=== PATIENT | female | born 1985 | race African-American/Black ===

== ENCOUNTER 2019-12-24 01:03 | Inpatient (IN) ==
[2019-12-24] MEDS ORDERED: BUTORPHANOL 2 MG/ML VIAL IV PRN (01:30)
[2019-12-24] MEDS ORDERED: ONDANSETRON 4 MG/2 ML VIAL IV PRN (01:30)
[2019-12-24] MEDS ORDERED: MEPERIDINE 50 MG/1 ML VIAL IV PRN (01:30)
[2019-12-24] MEDS: LACTATED RINGERS 1,000 ML IV SCH ×2 (01:50→10:02)
[2019-12-24 02:04] LABS: Basophils % 0.2 % (0.0-0.8); Eosinophils # 0.1 10*3/uL (0.0-0.87); Eosinophils % 1.1 % (0.00-10.9); Hematocrit 33.4 VOL% (35.7-47.0); Hemoglobin 11.6 GM/DL (12.0-16.0); Immature Granulocytes % 0.2 %; Immature Granulocytes Absolute 0.01 #; Lymphocytes # 1.2 10*3/uL (1.4-4.0); Lymphocytes % 26.2 % (21.3-54.2); Mean Corpuscular HGB Conc 34.7 GM/DL (32-36); Mean Corpuscular Volume 93.3 FL (87-102); Mean Platelet Volume 9.6 FL (9.6-12.0); Monocytes % 8.5 % (1.7-12.7); Neutrophils % 63.8 % (38.7-73.9); Platelet Count 142 T/CUMM (130-400); Red Blood Count 3.58 MC/CUMM (3.8-5.5); Red Cell Distribution Width 12.4 % (9.3-17.3); White Blood Count 4.6 T/CUMM (4-12)
[2019-12-24] MEDS: OXYTOCIN/LR 20 UNIT/1,000 ML BAG IV SCH ×2 (02:20→15:01)
[2019-12-24 02:25] LABS: Albumin 2.7 G/DL (3.4-5.0); Bilirubin,Total 0.6 MG/DL (0.2-1.0); Calcium 9.2 MG/DL (8.5-10.1); Osmolality,Calculated 267.1 MOS/KG (273-304); Total Protein 7.4 G/DL (6.4-8.3)
[2019-12-24 04:57] LABS: Hypochromasia Slight; Microcytosis Slight; Ovalocytes Slight; Tear Drop Cells Slight
[2019-12-24 04:58] LABS: Platelet Estimate Adequate
[2019-12-24] MEDS ORDERED: METHYLERGONOVINE 0.2 MG/1 ML AMP ONE (11:45)
[2019-12-24] MEDS ORDERED: TRANEXAMIC ACID 1,000 MG/10 ML VIAL ONE (11:45)
[2019-12-24] MEDS ORDERED: OXYTOCIN/LR 20 UNIT/1,000 ML BAG IV ONE ×2 (11:45→15:57)
[2019-12-24] MEDS ORDERED: miSOPROStoL 200 MCG TABLET ONE (11:45)
[2019-12-24] MEDS ORDERED: CARBOPROST TROMETHAMINE 250 MCG/ML AMP IM ONE (11:46)
[2019-12-24 12:38] LABS: Cord Arterial Blood HCO3 18.3 MMOL/L; Cord Venous Blood HCO3 19.2 MMOL/L; Cord Venous Blood PCO2 36.7 MMHG; Cord Venous Blood PO2 36.6 MMHG
[2019-12-24] MEDS ORDERED: MEASLES/MUMPS/RUBELLA VACCINE 0.5 ML VIAL SUBCUT ONE (15:57)
[2019-12-24] MEDS ORDERED: oxyCODONE/ACETAMINOPHEN 5-325 MG TABLET PO PRN (15:57)
[2019-12-24] MEDS ORDERED: BENZOCAINE 20%/MENTHOL 0.5% SPRAY 56 GM CAN TOP PRN (15:57)
[2019-12-24] MEDS ORDERED: DIPH/TET/ACEL PERT BOOSTER VACCINE 0.5 ML VIAL IM ONE (15:57)
[2019-12-24] MEDS ORDERED: RHO(D) IMMUNE GLOBULIN 300 MCG SYRINGE IM ONE (15:57)
[2019-12-24] MEDS ORDERED: WITCH HAZEL PADS 100/JAR TOP PRN (15:57)
[2019-12-24] MEDS ORDERED: LANOLIN 50% CREAM 0.3 OZ TUBE TOP PRN (15:57)
[2019-12-24] MEDS ORDERED: ACETAMINOPHEN 325 MG TABLET PO PRN (15:57)
[2019-12-24] MEDS ORDERED: IBUPROFEN 800 MG TABLET PO PRN (15:57)
[2019-12-24] MEDS ORDERED: BISACODYL 10 MG SUPP RECTAL PRN (15:57)
[2019-12-24] MEDS ORDERED: HYDROCORTISONE 2.5% RECTAL CREAM 30 GM TUBE TOP PRN (15:57)
[2019-12-24] MEDS: oxyCODONE/ACETAMINOPHEN 5-325 MG TABLET PO PRN (18:40)
[2019-12-24] MEDS: DOCUSATE SODIUM 100 MG CAPSULE PO SCH (21:26)
[2019-12-25 05:44] LABS: Basophils % 0.1 % (0.0-0.8); Eosinophils # 0.1 10*3/uL (0.0-0.87); Eosinophils % 0.7 % (0.00-10.9); Hematocrit 28.4 VOL% (35.7-47.0); Immature Granulocytes % 0.4 %; Immature Granulocytes Absolute 0.03 #; Lymphocytes # 1.3 10*3/uL (1.4-4.0); Mean Corpuscular HGB Conc 35.2 GM/DL (32-36); Mean Corpuscular Volume 91.9 FL (87-102); Monocytes % 6.3 % (1.7-12.7); Neutrophils % 76.5 % (38.7-73.9); Platelet Count 124 T/CUMM (130-400); Red Blood Count 3.09 MC/CUMM (3.8-5.5); Red Cell Distribution Width 12.4 % (9.3-17.3); White Blood Count 8.1 T/CUMM (4-12)
[2019-12-25 06:06] LABS: Hypochromasia 1+; Microcytosis 1+; Platelet Estimate Normal
[2019-12-25] MEDS: DOCUSATE SODIUM 100 MG CAPSULE PO SCH ×2 (09:21→20:52)
[2019-12-25] MEDS: oxyCODONE/ACETAMINOPHEN 5-325 MG TABLET PO PRN ×2 (09:21→20:52)
[2019-12-26] MEDS: oxyCODONE/ACETAMINOPHEN 5-325 MG TABLET PO PRN (05:53)
[2019-12-26] MEDS ORDERED: IBUPROFEN 400 MG TABLET PO PRN (06:00)
[2019-12-26 08:55] VITALS: BP 101/58
[2019-12-26] MEDS: DOCUSATE SODIUM 100 MG CAPSULE PO SCH (09:18)
[2019-12-26] MEDS ORDERED: DIPH/TET/ACEL PERT BOOSTER VACCINE 0.5 ML VIAL IM ONE (10:31)
== END 2019-12-26 12:20 | disposition home or self-care (01) | DRG 807 ==
LOC: N.LDOUT 01:03 → N.LD 01:10 → N.OB 15:39
PROVIDERS: ADMIT Obstetrics & Gynecology; ATTEND Obstetrics & Gynecology